=== PATIENT | female | born 1935 | race Caucasian/White ===

== ENCOUNTER → 2017-10-13 13:07 | Outpatient (POV) | payer MEDICARE, SELFPAY | DX: Z00.00 Encounter for general adult medical examination without abnormal findings (principal) ==

== ENCOUNTER → 2017-11-30 10:04 | Outpatient (CLI) | payer MEDICARE, SELFPAY ==
--- NOTE | 2017-11-30 10:06 | MM_ITS ---
MM Dig screening mamm BI w/CAD CAD Screening ORDERING PHYSICIAN : Ethan Carrasco MD PATIENT AGE: 82 years GENDER: Female COMPARISON: Previous mammograms: September 2014, November 2016 and October 2015 INDICATION: Routine screening. No hormones no new complaints. Family history sister with breast cancer TECHNIQUE: Standard CC and MLO images were obtained. R2 CAD reviewed. FINDINGS: Mild to moderate residual fibroglandular elements both breasts. No dominant mass. No suspicious calcifications. Vascular calcifications are seen in both breast similar to previous studies. No new areas of concern bilateral follow-up recommended one year. IMPRESSION: Stable bilateral mammogram with no significant new findings. Bilateral follow-up in one year recommended. BI-RADS Category: 1 Negative RECOMMENDED FOLLOW-UP: 1YR - 1 YEAR FOLLOW-UP (A letter has been sent to the patient regarding results of the study.)
== END ==
PROVIDERS: PCP Family Medicine; Visit Provider Nurse Practitioner Obstetrics & Gynecology
DX: Z12.31 Encounter for screening mammogram for malignant neoplasm of breast (principal)
CPT/HCPCS: 77067

== ENCOUNTER → 2018-02-01 14:42 | Outpatient (CLI) | payer MEDICARE, SELFPAY ==
--- NOTE | 2018-02-01 14:51 | CT_ITS ---
CT abdomen pelvis wo con CLINICAL INDICATION: Pain for urination, history of kidney stones ITS.REASON: UROLITHIASIS ORDERING PHYSICIAN: Adan Ramírez MD PATIENT AGE: 82 years COMPARISON: 10/16/2014 TECHNIQUE: Axial images obtained with sagittal and coronal reformats. All CT scans at the facility use one or more dose reduction, viz: automated exposure control, ma/kV adjustment per patient size (including targeted exams where dose is matched to indication, i.e. head), or iterative reconstruction technique. PROCEDURE: Oral Contrast: None IV Contrast: None . FINDINGS: Mild atelectatic or fibrotic changes in lung bases. There are several isodensity's of the liver measuring up to 9 mm consistent with hepatic cysts. There is mild thickening of the pericardium. No calcified gallstones. Spleen, adrenal glands, and pancreas have an unremarkable unenhanced appearance. There is a 5 mm calcific density in the mid aspect of the left kidney. No hydronephrosis. No ureteral calculi. History given of appendectomy. No intestinal obstruction or free air. No evidence of diverticulitis. There are some scattered diverticula noted ethmoid: There is a small amount fluid in the cul-de-sac on the right. No acute bony anomalies. Subarticular cyst involves the right acetabulum. IMPRESSION: 1. No ureteral calculi. There is a 5 mm calcific density in the left kidney that appears to represent a parenchymal calcification and not a renal stone 2. Small amount fluid in the pelvis etiology indeterminate. 3. Otherwise negative CT abdomen pelvis
== END ==
PROVIDERS: PCP Family Medicine; Visit Provider Urology
DX: N20.9 Urinary calculus, unspecified (principal)
CPT/HCPCS: 74176

== ENCOUNTER → 2018-05-18 13:06 | Outpatient (POV) | payer MEDICARE, SELFPAY | DX: Z00.00 Encounter for general adult medical examination without abnormal findings (principal) ==

== ENCOUNTER → 2018-09-14 13:24 | Outpatient (POV) | payer MEDICARE, SELFPAY | DX: Z00.00 Encounter for general adult medical examination without abnormal findings (principal) ==

== ENCOUNTER → 2018-12-27 16:01 | Outpatient (CLI) | payer MEDICARE, SELFPAY ==
--- NOTE | 2018-12-27 16:04 | MM_ITS ---
MM Dig screening mamm BI w/CAD ORDERING PHYSICIAN : Ethan Carrasco MD PATIENT AGE: 83 years GENDER: Female COMPARISON: November 20172016, October 2015, September 2014. INDICATION: ITS..: Routine Screening Mammogram . No hormones. No new complaints. It Family history. Sister with breast cancer. TECHNIQUE: Standard CC and MLO images were obtained. R2 CAD reviewed. FINDINGS: Moderate residual fibroglandular elements given this age patient. Overall architecture distribution similar to previous studies. No new suspicious features. No new findings of significant concern. No dominant mass nor architectural distortion nor suspicious calcifications. Minimal vascular calcifications bilaterally RIGHT BREAST:Stable right mammogram LEFT BREAST: Areas of minor asymmetry is similar to studies dating back to at least 2017. ............ IMPRESSION: ...... Stable bilateral mammogram. No significant new findings. Bilateral follow-up in one year. . BI-RADS Category: 1 Negative RECOMMENDED FOLLOW-UP: 1YR 1 YEAR FOLLOW-UP (A letter has been sent to the patient regarding results of the study.)
== END ==
PROVIDERS: PCP Family Medicine; Visit Provider Nurse Practitioner Obstetrics & Gynecology
DX: Z12.31 Encounter for screening mammogram for malignant neoplasm of breast (principal)
CPT/HCPCS: 77067

== ENCOUNTER → 2019-05-31 12:45 | Outpatient (POV) | payer MEDICARE, SELFPAY | DX: Z00.00 Encounter for general adult medical examination without abnormal findings (principal) ==

== ENCOUNTER → 2020-10-09 13:36 | Outpatient (POV) | payer MEDICARE, SELFPAY | DX: Z00.00 Encounter for general adult medical examination without abnormal findings (principal) ==

== ENCOUNTER → 2021-03-11 08:33 | Outpatient (CLI) | payer MEDICARE, SELFPAY ==
--- NOTE | 2021-03-11 08:38 | XR_ITS ---
PROCEDURE: XR DEXA AXIAL SKELETON CLINICAL HISTORY: AGE RELATED OSTEOPOROSIS COMPARISON: CR,DX BONE3 BONE DENSITOMETRY(HIP:LT SPINE from 05/17/2017 FINDINGS: The right hip BMD is 0.531 with a T-score of -2.9. The left hip BMD is 0.487 with a T-score of -3.7. The lumbar spine BMD is 0.754 with a T-score of -2.7 previously the lowest bone density was in the right femur with a T-score of -3.1. IMPRESSION: This patient is considered osteoporotic according to the World Health Organization criteria. Fracture risk is high. Treatment is advised. Based on these results a follow-up exam is recommended in 1 year. Dictated by: Tyrese Dominguez MD 03/11/2021 09:23 Tyrese Dominguez MD in [place] 03/11/2021 09:23
== END ==
PROVIDERS: PCP Family Medicine; Visit Provider Internal Medicine Nephrology
DX: M81.0 Age-related osteoporosis without current pathological fracture (principal)
CPT/HCPCS: 77080

== ENCOUNTER → 2021-03-17 20:56 | Outpatient (CLI) | payer MEDICARE, SELFPAY | PROVIDERS: Visit Provider Nurse Practitioner Family | DX: Z20.822 Contact with and (suspected) exposure to COVID-19 (principal) | CPT/HCPCS: C9803; U0003; U0005 ==

== ENCOUNTER 2021-05-01 17:38 | Emergency (ER) | payer MEDICARE, SELFPAY ==
[2021-05-01 17:48] VITALS: BP 143/86; PULSE 80; RESP 16; TEMP 36.8; O2SAT 98; BMI 20.1
[2021-05-01 19:16] VITALS: BP 153/71; PULSE 98; RESP 18; TEMP 36.5; O2SAT 96; BMI 18.8
[2021-05-01 19:34] LABS: Apearance,Urine Clear (Clear); Color,Urine Straw (Yellow)
[2021-05-01 19:35] LABS: Bilirubin,Urine Negative (Negative); Blood, Urine Trace (Negative); Glucose,Urine (UA) Negative (Negative); Ketones,Urine Negative (Negative); PH,Urine 5.5 (5.0-8.5); Protein,Urine Negative (Negative); Specific Gravity, Urine < 1.005 (1.005-1.030); UTC Leukocyte Esterase,Urine Negative (Negative); UTC Nitrate,Urine Negative (Negative); Urobilinogen,Urine 0.2 EU/dl (0.2)
[2021-05-01 19:48] VITALS: BP 153/71; PULSE 98; RESP 18; TEMP 36.5
--- NOTE | 2021-05-01 20:03 | HMH.EDUTC ---
[facility] [place] Disposition Clinical Impression: Urinary hesitancy Disposition: Home, Self-Care Condition on Discharge: Good Instructions: DI for Dysuria -- Adult Additional Instructions: Drink plenty of fluids. Take tylenol or ibuprofen for pain or fever. Take the medications as directed. Follow up with your regular doctor. GO TO THE ER FOR ANY WORSENING SYMPTOMS Follow up with your primary care physician for a recheck in 24 to 48 hours. Referrals: Thom Crowe MD [Primary Care Provider] - Time of Disposition: 20:07 Medical Decision Making - Medical Records Medical records reviewed: Yes: I reviewed the patient's medical records. - Kirk Inquiry Pt receiving controlled substance: No Vital Signs: 05/01/21 17:48 05/01/21 19:16 05/01/21 19:48 Temperature 98.2 F 97.7 F 97.7 F Temperature Source Oral Oral Pulse Rate 98 H Pulse Rate [Right] 80 98 H Respiratory Rate 16 18 18 Blood Pressure 153/71 H Blood Pressure [Right Arm] 143/86 H 153/71 H Blood Pressure Mean [Right Arm] 105 98 Blood Pressure Source [Right Arm] Automatic Cuff Blood Pressure Position [Right Arm] Sitting 02 Sat by Pulse Oximetry 98 96 Oxygen Delivery Method Room Air - Lab Data Lab results reviewed: Yes: I reviewed the patient's lab results. Lab Results 05/01/21 19:19: Urine Color Straw, Urine Appearance Clear, Urine pH 5.5, Ur Specific [place] < 1.005 L, Urine Protein Negative, Urine Glucose (UA) Negative, Urine Ketones Negative, Urine Blood Trace, Urine Nitrate Negative, Urine Bilirubin Negative, Urine Urobilinogen 0.2, Ur Leukocyte Esterase Negative Orders (Tests/Meds): ORDERS Category Date Time Status Urine Culture Stat Micro 05/01/21 19:29 Received [facility] [place] HPI - General Stated complaint: trouble urinating Time Seen by Provider: 05/01/21 20:03 Mode of Arrival: Ambulatory Source of Information: Patient Limitations: No Limitations Description of Symptoms (Recalled from Triage Doc. by RN): PT STATES SHE WOKE UP THIS MORNING AND WAS HAVING URINARY HESISTENCY, VAGINAL PRESSURE AND LOWER BACK PAIN. HOWEVER, PT STATES SINCE BEING HERE SHE WAS ABLE TO HAVE A GOOD, NORMAL VOID. HEENT Symptoms (Recalled from RN notes): No Resp Symptoms (Recalled from RN notes): No Skin Symptoms (Recalled from RN notes): No MS Symptoms (Recalled from RN notes): Yes (LOWER BACK PAIN) Functional Status (Recalled from RN notes): NA - History of Present Illness Provider Complaint: She has been having trouble getting herself to start urinating today. She states that she will feel like she needs to pee, but when she goes it takes a few minutes to get started. She denies burning or other complaints. She denies any fever or chills. - Related Data Home Medications Medication Instructions Recorded Confirmed aspirin 81 mg tablet,delayed 81 mg PO .every other day tab 12/08/17 03/17/21 release bimatoprost 0.01 % eye drops 1 drp OPHTHALMIC QPM 12/08/17 03/17/21 calcium carbonate 600 mg(1,500 1 tab PO BID 12/08/17 03/17/21 mg)-vitamin D3 800 unit chewable tablet ferrous sulfate 325 mg (65 mg 325 mg PO DAILY tab 12/08/17 03/17/21 iron) tablet pravastatin 40 mg tablet 40 mg PO DAILY 30 Days #30 tab 12/08/17 03/17/21 dmefeehn-eiq-uihpb acid 0.4 1 tab PO DAILY 02/01/18 03/17/21 mg-lycopene 300 mcg-lutein 250 mcg tablet pantoprazole 20 mg tablet,delayed 20 mg PO DAILY 03/17/21 03/17/21 release timolol maleate 0.25 % eye drops 1 drp OPHTHALMIC DAILY 03/17/21 03/17/21 Allergies Allergy/AdvReac Type Severity Reaction Status Date / Time No Known Allergies Allergy Verified 03/17/21 15:03 - Worker's Comp Is this a Worker's Comp case?: No [facility] History - Hepatitis A Screen Drug use history?: No High risk sexual behaviors?: No History of sexually transmitted infection?: No 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?: No Do you have indoor plumbing?: Yes Do you have electricity?: Yes Attestation st
== END 2021-05-01 20:29 | disposition home or self-care (01) ==
PROVIDERS: Emergency Provider Nurse Practitioner Family; PCP Family Medicine
DX: R39.11 Hesitancy of micturition (principal); M54.50 Low back pain, unspecified; K21.9 Gastro-esophageal reflux disease without esophagitis; E78.5 Hyperlipidemia, unspecified; Z79.899 Other long term (current) drug therapy
CPT/HCPCS: G0463; 81003; 87086; 99202

== ENCOUNTER 2021-06-12 13:26 | Emergency (ER) | payer MEDICARE, SELFPAY ==
[2021-06-12 14:16] VITALS: BP 136/83; PULSE 87; RESP 18; TEMP 36.6; O2SAT 97; BMI 20.6
[2021-06-12 14:26] LABS: Apearance,Urine Clear (Clear); Color,Urine Straw (Yellow)
[2021-06-12 14:58] LABS: PH,Urine 5.5 (5.0-8.5); Specific Gravity, Urine < 1.005 (1.005-1.030)
[2021-06-12 14:59] LABS: Bilirubin,Urine Negative (Negative); Blood, Urine 1+ (Negative); Glucose,Urine (UA) Negative (Negative); Ketones,Urine Negative (Negative); Protein,Urine Negative (Negative); UTC Leukocyte Esterase,Urine Negative (Negative); UTC Nitrate,Urine Negative (Negative); Urobilinogen,Urine 0.2 EU/dl (0.2)
--- NOTE | 2021-06-12 15:17 | HMH.EDUTC ---
[facility] [place] Disposition Clinical Impression: Urinary hesitancy Disposition: Home, Self-Care Condition on Discharge: Good Instructions: DI for Urinary Retention in Women, Urinary Tract Infection Additional Instructions: Drink plenty of fluids. Take tylenol for pain or fever. Follow up with your regular doctor. Please follow up over these reoccurent symptoms. A nonemergent ultrasound of your bladder would be a good test for your doctor to consider. We generally are not allowed to order ultrasounds in the [place] because they require prior approval by your insurance. GO TO THE ER FOR ANY WORSENING SYMPTOMS Referrals: Thom Crowe MD [Primary Care Provider] - Time of Disposition: 15:37 Medical Decision Making - Medical Records Medical records reviewed: No: I reviewed the patient's medical records. - Kirk Inquiry Pt receiving controlled substance: No Vital Signs: 06/12/21 14:16 Temperature 97.9 F Temperature Source Temporal Artery Scan Pulse Rate [Left] 87 Respiratory Rate 18 Blood Pressure [Right Arm] 136/83 Blood Pressure Mean [Right Arm] 100 02 Sat by Pulse Oximetry 97 - Lab Data Lab results reviewed: Yes: I reviewed the patient's lab results. Lab Results 06/12/21 14:20: Urine Color Straw, Urine Appearance Clear, Urine pH 5.5, Ur Specific [place] < 1.005 L, Urine Protein Negative, Urine Glucose (UA) Negative, Urine Ketones Negative, Urine Blood 1+, Urine Nitrate Negative, Urine Bilirubin Negative, Urine Urobilinogen 0.2, Ur Leukocyte Esterase Negative Orders (Tests/Meds): ORDERS Category Date Time Status Urine Culture Stat Micro 06/12/21 14:19 Received [facility] [place] HPI - General Stated complaint: trouble urinating Time Seen by Provider: 06/12/21 15:17 Mode of Arrival: Ambulatory Source of Information: Patient Limitations: No Limitations Description of Symptoms (Recalled from Triage Doc. by RN): pt c/o flank pain, groin pain, and pain with urination. HEENT Symptoms (Recalled from RN notes): No Resp Symptoms (Recalled from RN notes): No Skin Symptoms (Recalled from RN notes): No MS Symptoms (Recalled from RN notes): No Functional Status (Recalled from RN notes): wnl - History of Present Illness Provider Complaint: She states that for the past 1 day, it has seemed like she has trouble getting started urinating. Then, when she does start, her stream will start intermittently. She denies any burning or hurting, other than some mild tenderness of her lower abdomen on the right and left. She denies back pain. Before her symptoms started this time, and before her symptoms started the last time she had this, she was deep cleaning her house and pulling her bed out to clean beneath it. She thinks that she may have strained a muscle, but she wanted to make sure she did not have a UTI. - Related Data Home Medications Medication Instructions Recorded Confirmed aspirin 81 mg tablet,delayed 81 mg PO .every other day tab 12/08/17 03/17/21 release bimatoprost 0.01 % eye drops 1 drp OPHTHALMIC QPM 12/08/17 03/17/21 calcium carbonate 600 mg-vitamin 1 tab PO BID 12/08/17 03/17/21 D3 20 mcg (800 unit) chewable tablet ferrous sulfate 325 mg (65 mg 325 mg PO DAILY tab 12/08/17 03/17/21 iron) tablet pravastatin 40 mg tablet 40 mg PO DAILY 30 Days #30 tab 12/08/17 03/17/21 tfxqqerm-xij-lulrq acid 0.4 1 tab PO DAILY 02/01/18 03/17/21 mg-lycopene 300 mcg-lutein 250 mcg tablet pantoprazole 20 mg tablet,delayed 20 mg PO DAILY 03/17/21 03/17/21 release timolol maleate 0.25 % eye drops 1 drp OPHTHALMIC DAILY 03/17/21 03/17/21 Allergies Allergy/AdvReac Type Severity Reaction Status Date / Time No Known Allergies Allergy Verified 03/17/21 15:03 - Worker's Comp Is this a Worker's Comp case?: No [facility] History - Hepatitis A Screen Drug use history?: No High risk sexual behaviors?: No History of sexually transmitted infection?: No 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
[2021-06-12 15:37] VITALS: BP 136/83; PULSE 87; RESP 18; TEMP 36.6
== END 2021-06-12 15:50 | disposition home or self-care (01) ==
PROVIDERS: Emergency Provider Nurse Practitioner Family; PCP Family Medicine
DX: R31.9 Hematuria, unspecified (principal); R39.11 Hesitancy of micturition; K21.9 Gastro-esophageal reflux disease without esophagitis; E78.5 Hyperlipidemia, unspecified
CPT/HCPCS: G0463; 81003; 87086; 99202

== ENCOUNTER → 2021-06-25 08:37 | Outpatient (CLI) | payer MEDICARE, SELFPAY ==
--- NOTE | 2021-06-25 08:43 | US_ITS ---
FINAL REPORT CLINICAL HISTORY: PELVIC PAIN INTERMITTENT ABD PAIN FINDINGS: ABDOMINAL ULTRASOUND COMPLETE: TECHNIQUE: Ultrasound images of the abdomen were obtained. FINDINGS: The liver is fatty infiltrated. The gallbladder contains a minimal amount of sludge. The common duct is normal. The right kidney measures 8.6 cm in length and is normal in echogenicity . There is mild right hydronephrosis. The left kidney measures 8.1 cm in length and is normal in echogenicity without hydronephrosis. The spleen is unremarkable. The aorta is normal in caliber. The vena cava is unremarkable. IMPRESSION: Fatty infiltration of the liver. Mild atrophy of the bilateral kidneys with mild right hydronephrosis. Minimal sludge in the gallbladder. Reviewed, Interpreted and Dictated by Redd Flowers MD Transcribed by Rafael Acosta Authenticated by Redd Flowers MD on 06/25/2021 12:17:30 PM [facility]
--- NOTE | 2021-06-25 08:44 | US_ITS ---
FINAL REPORT TECHNIQUE: Transvaginal images of the pelvis were obtained. CLINICAL HISTORY: PELVIC PAIN-- INTERMITTENT-- POST MENOPAUSAL FINDINGS: The uterus is retroverted and measures 5.3 x 4.6 x 2.6 cm. The endometrium is unremarkable. The ovaries are not visualized. There is no significant free fluid. IMPRESSION: Retroverted uterus. Nonvisualization of the bilateral ovaries. Reviewed, Interpreted and Dictated by Redd Flowers MD Transcribed by Rafael Acosta Authenticated by Redd Flowers MD on 06/25/2021 12:17:29 PM [facility]
== END ==
PROVIDERS: PCP Family Medicine; Visit Provider Family Medicine
DX: R10.2 Pelvic and perineal pain (principal)
CPT/HCPCS: 76700; 76856

== ENCOUNTER 2022-01-10 20:09 | Emergency (ER) | payer MEDICARE, SELFPAY ==
[2022-01-10 20:11] VITALS: BP 134/61; PULSE 93; RESP 17; TEMP 36.8; O2SAT 98; BMI 19.7
[2022-01-10 20:22] VITALS: PULSE 92; O2SAT 98
--- NOTE | 2022-01-10 20:35 | HMH.EDUROGF ---
ED Disposition Clinical Impression: Bladder disorder, unspecified, Renal insufficiency Disposition: Home, Self-Care Condition on Discharge: Good Instructions: DI for Overactive Bladder Additional Instructions: see pcp for follow up Referrals: Thom Crowe MD [Primary Care Provider] - - Critical Care Critical Care Time: No Attestation: On 01/10/22, the high probability of a clinically significant, sudden or life threatening deterioration of the following system(s) required my full and direct attention, intervention and personal management. The time I documented below is in addition to time spent performing reported procedures but includes the following listed in this critical care notation. Medical Decision Making - Medical Records Medical records reviewed: Yes: I reviewed the patient's medical records. - Kirk Inquiry Pt receiving controlled substance: No Vital Signs: 01/10/22 20:11 01/10/22 20:22 Temperature 98.3 F Temperature Source Oral Pulse Rate 92 H Pulse Rate [Right] 93 H Respiratory Rate 17 Blood Pressure [Right Arm] 134/61 Blood Pressure Mean [Right Arm] 85 Blood Pressure Source [Right Arm] Automatic Cuff 02 Sat by Pulse Oximetry 98 98 Oxygen Delivery Method Room Air - Lab Data Lab results reviewed: Yes: I reviewed the patient's lab results. Lab Results 01/10/22 20:15: Urine Color Yellow, Urine Appearance Clear, Urine pH 5.5, Ur Specific [place] <= 1.005, Urine Protein Negative, Urine Glucose (UA) Negative, Urine Ketones Negative, Urine Blood Trace-i, Urine Nitrate Negative, Urine Bilirubin Negative, Urine Urobilinogen 0.2, Ur Leukocyte Esterase Trace, Urine RBC Occasional, Urine WBC Occasional, Ur Squamous Epith Cells Occasional, Urine Bacteria Trace 01/10/22 20:15: WBC 5.8, RBC 3.92 L, Hgb 12.3, Hct 35.8 L, MCV 91.3, MCH 31.2, MCHC 34.2, RDW 11.8, Plt Count 295, MPV 7.6, Neut % (Auto) 58.9, Lymph % (Auto) 28.9, [place] % (Auto) 9.1, Eos % (Auto) 2.2, Baso % (Auto) 0.8, Neut # (Auto) 3.4, Lymph # (Auto) 1.7, [place] # (Auto) 0.5, Eos # (Auto) 0.1, Baso # (Auto) 0.1, ESR 24 01/10/22 20:15: Sodium 137, Potassium 5.1, Chloride 100, Carbon Dioxide 32 H, Anion Gap 10.1, BUN 24 H, Creatinine 1.20 H, Estimated Creat Clear 30, Estimated GFR 43 L, Est GFR ( Amer) 52 L, Glucose 144 H, Calcium 10.0, Total Bilirubin < 0.1 L, AST 38 H, ALT 15, Alkaline Phosphatase 76, C-Reactive Protein 1.2, Total Protein 7.1, Albumin 4.1, Globulin 3.0, Albumin/Globulin Ratio 1.4, Procalcitonin 0.065, TSH 3.72, Thyroxine (T4) 11.0 01/10/22 20:15: Lactate 1.4 01/10/22 20:40: SARS-CoV-2 (PCR) Not detected, Influenza A Untype (PCR) Not detected, Influenza Type B (PCR) Not detected Result diagrams: 01/10/22 20:15 01/10/22 20:15 Orders (Tests/Meds): ED MEDICATIONS Generic Name Dose Route Start Last Admin Trade Name Freq PRN Reason Stop Dose Admin Sodium Chloride 1,000 mls @ 999 mls/hr 01/10/22 20:45 01/10/22 20:38 Sod Chlor 0.9% 1000ml Bag IV 01/10/22 21:45 999 mls/hr .Q1H1M SAMPSON Administration - CT Data CT Scan: Abdomen, Pelvis Time Received: 22:[address] Reviewed: Yes: I have viewed the radiologist's interpretation Preliminary Findings: Normal/NAD Medical Decision Narrative: has bladder spasm sx with stable exam and will see pcp for follow up Female Urogenital HPI - General Chief complaint: Abdominal Pain Stated complaint: weak, lower abd pain Time Seen by Provider: 01/10/22 20:30 Mode of Arrival: Family Vehicle Source of Information: Patient, Relative, Medical Record Limitations: No Limitations Description of Symptoms (Recalled from ER Triage Doc. by RN): Pt c/o low ABD pain that causes her urinary urgency. States after she goes to the bathroom the pain persists for a few moments but then she feels better and the pain goes away . Denies any fever, chills, or n/v/d. States she has felt hot several times the last few days, but took her temp and no fever. She is A&Ox but does note some
[2022-01-10 20:42] LABS: Microscopic, Urine URINE MICROSCOPIC (MICROSCOPIC)
[2022-01-10 20:44] LABS: Appearance,Urine CLEAR (Clear); Bilirubin,Urine Negative (Negative); Blood, Urine TRACE-I (Negative); Color,Urine YELLOW (Yellow); Glucose,Urine (UA) Negative (Negative); Ketones,Urine Negative (Negative); Leukocyte Esterase,Urine TRACE (Negative); Nitrate,Urine Negative (Negative); PH,Urine 5.5 (5.0-8.5); Protein,Urine Negative (Negative); Specific Gravity, Urine <= 1.005 (1.005-1.030); Urobilinogen,Urine 0.2 EU/dl (0.2)
[2022-01-10 20:45] LABS: Basophils # 0.1 K/mm3 (0-0.2); Basophils % 0.8 % (0.1-2.0); Eosinophils # 0.1 K/mm3 (0.0-0.4); Eosinophils % 2.2 % (0.1-12.0); Hematocrit 35.8 % (37.0-47.0); Hemoglobin 12.3 g/dL (12.2-16.2); Lymphocytes # 1.7 K/mm3 (0.7-4.5); Lymphocytes % 28.9 % (10-50); Mean Corpuscular HGB Conc 34.2 g/dL (31.8-35.4); Mean Corpuscular Hemoglobin 31.2 pg (27.0-31.2); Mean Corpuscular Volume 91.3 fl (81-99); Mean Platelet Volume 7.6 fl (7.4-10.4); Monocytes # 0.5 K/mm3 (0.1-1.0); Monocytes % 9.1 % (1.7-9.3); Neutrophils # 3.4 K/mm3 (1.8-7.8); Neutrophils % 58.9 % (37.0-80.0); Platelet Count 295 K/mm3 (142-424); Red Blood Count 3.92 M/mm3 (4.20-5.40); Red Cell Distribution Width 11.8 % (11.5-17.5); White Blood Count 5.8 K/mm3 (4.8-10.8)
[2022-01-10 20:49] LABS: Coronavirus 19, PCR Not Detected (NotDetected); Influenza A, PCR Not Detected (NotDetected); Influenza B, PCR Not Detected (NotDetected)
[2022-01-10 20:49] LABS: Alanine Aminotransferase 15 U/L (12-78); Albumin Level 4.1 g/dl (3.5-5.0); Albumin/Globulin Ratio 1.4 (1.1-1.8); Alkaline Phosphatase 76 U/L (38-126); Anion Gap 10.1 mEq/L (5-15); Aspartate Amino Transferase 38 U/L (14-36); Bilirubin,Total < 0.1 mg/dl (0.2-1.3); Blood Urea Nitrogen 24 mg/dl (7-17); Carbon Dioxide 32 mmol/L (22.0-30.0); Chloride 100 mmol/L (98-107); Creatinine Clearance Estimated 30 mL/min (50-200); Estimated Glomerular Filt Rate 43 ml/min (>60); GFR (African American) 52 ML/MIN (>60); Glucose 144 mg/dl (74-100); Potassium 5.1 mmoL/L (3.5-5.1); Sodium 137 mmol/L (136-145); Total Protein,Serum 7.1 g/dl (6.3-8.2)
[2022-01-10 20:50] LABS: Lactic Acid 1.4 mmol/L (0.7-2.1)
[2022-01-10 20:54] LABS: C-Reactive Protein 1.2 mg/L (0-4)
[2022-01-10 21:08] LABS: Procalcitonin 0.065 ng/mL (0.0-2.0)
[2022-01-10 21:10] LABS: Erythrocyte Sedimentation Rate 24 mm/hr (0-30)
[2022-01-10 21:12] LABS: Bacteria,Urine Trace /lpf; RBC,Urine Occasional #/hpf (0-3); Squamous Epithelial Cell,Urine Occasional #/hpf (0-5); WBC,Urine Occasional #/hpf (0-3)
--- NOTE | 2022-01-10 21:14 | CT_ITS ---
PROCEDURE INFORMATION: Exam: CT Abdomen And Pelvis Without Contrast Exam date and time: 01/10/2022 9:16 PM Age: 86 years old Clinical indication: Other: Painful urination; Additional info: Pain with urination TECHNIQUE: Imaging protocol: Computed tomography of the abdomen and pelvis without contrast. Radiation optimization: All CT scans at this facility use at least one of these dose optimization techniques: automated exposure control; mA and/or kV adjustment per patient size (includes targeted exams where dose is matched to clinical indication); or iterative reconstruction. COMPARISON: [facility] CT abdomen pelvis wo con 02/01/2018 2:56 PM FINDINGS: Liver: Background liver parenchyma is hyperdense which may reflect hemochromatosis or medication effect. Tiny hypoattenuating foci in the liver are too small to fully characterize but likely cysts or bile duct hamartomas, stable from prior in 2018. Gallbladder and bile ducts: Postprandial gallbladder is contracted. Pancreas: Normal. No ductal dilation. Spleen: Normal. No splenomegaly. Adrenal glands: Normal. No mass. Kidneys and ureters: Kidneys are symmetric without evidence of obstruction on either side. Parenchymal calcification noted on the left. No intrarenal stones. Stomach and bowel: Postprandial stomach. Normal caliber small bowel. Normal colon. Appendix: No evidence of appendicitis. Intraperitoneal space: Unremarkable. No free air. No significant fluid collection. Vasculature: Mildly calcified abdominal aorta without aneurysm. Lymph nodes: Unremarkable. No enlarged lymph nodes. Urinary bladder: Decompressed urinary bladder. Reproductive: Atrophic uterus as expected. Bones/joints: Unremarkable. No acute fracture. Soft tissues: Unremarkable. IMPRESSION: No evidence of urolithiasis or renal inflammation. Normal appearance of the decompressed urinary bladder. No acute abnormality to explain patient's dysuria.
[2022-01-10 21:22] LABS: Thyroid Stimulating Hormone 3.72 uIU/mL (0.465-4.68)
[2022-01-10 23:36] VITALS: BP 130/62; PULSE 89; RESP 18; TEMP 36.8; O2SAT 99
== END 2022-01-10 23:38 | disposition home or self-care (01) ==
PROVIDERS: Emergency Provider Emergency Medicine; PCP Family Medicine
DX: N28.9 Disorder of kidney and ureter, unspecified (principal); N32.89 Other specified disorders of bladder; R53.1 Weakness; R10.30 Lower abdominal pain, unspecified; R39.15 Urgency of urination; K21.9 Gastro-esophageal reflux disease without esophagitis; E78.5 Hyperlipidemia, unspecified
CPT/HCPCS: 74176; 80053; 81001; 83605; 84145; 84436; 84443; 85025; 85651; 86140; 87086; 96360; 99284; C9803; U0003; U0005

== ENCOUNTER 2022-02-20 11:01 | Emergency (ER) | payer MEDICARE, SELFPAY ==
[2022-02-20 11:25] VITALS: BP 126/77; PULSE 73; RESP 19; TEMP 36.6; O2SAT 100; BMI 20.1
--- NOTE | 2022-02-20 11:53 | EXP.UTC ---
Discharge Plan Disposition Patient Disposition: Home, Self-Care Condition: Good Prescriptions Prescriptions: No Action pravastatin 40 mg tablet 40 mg PO DAILY 30 Days Qty: 30 Label Comments: take 1 tablet by mouth once daily bimatoprost [Lumigan] 0.01 % drops 1 drp OPHTHALMIC QPM ferrous sulfate 325 mg (65 mg iron) tablet 325 mg PO DAILY calcium carbonate-vitamin D3 [Caltrate 600 plus D] 600 mg (1,500 mg)-800 unit tablet,chewable 1 tab PO BID aspirin 81 mg tablet,delayed release (DR/EC) 81 mg PO .every other day timolol maleate [Timoptic] 0.25 % drops 1 drp OPHTHALMIC DAILY pantoprazole 20 mg tablet,delayed release (DR/EC) 20 mg PO DAILY qhohhnov-jez-EX-lycopen-lutein [Centrum Silver] 0.4-300-250 mg-mcg-mcg tablet 1 tab PO DAILY Referrals Follow up/Referrals: Thom Crowe MD [Primary Care Provider] - See instructions Activity Restrictions/Add. Instructions Additional Instructions/Restrictions: *Monitor Temp, Over the counter Motrin or Tylenol as directed/as needed Tylenol every 4 hours and Motrin every 6 hours (as long as your family doctor has told you that you can take it) for fever or pain. and straight to ER if unable to lower temp less than 101.0 after medication given *Warm salt water gargles may help to soothe the throat *Throat Lozenges? *Warm fluids like tea with honey may help to soothe the throat? *Sleep elevated *Humidifier/Vaporizer Follow up IMMEDIATELY for new or worsening symptoms or no Noticeable improvement over the next 48-72 hours. 911 for difficulty breathing or swallowing You were tested for today for COVID19 your test result should be back in the next 24-48 hours, you may checked your results on the [facility] My Health Portal Make sure to take your Vitamins Vit. C Vit D and Zinc if you can take them Clinical Impressions Clinical Impression: COVID-19, Viral upper respiratory tract infection Instructions Patient Instructions: DI for Viral Upper Respiratory Infection -- Adult, Coronavirus Disease 2019 Discharge ED Provider: Nani Gomez [facility] [place] HPI General Stated complaint: covid test, runny nose, cough Mode of Arrival: Ambulatory Source of Information: Patient Limitations: No Limitations Time Seen by Provider: 02/20/22 11:40 Description of Symptoms (Recalled from Triage Doc. by RN): PATIENT C/O DRY COUGH, WATERY EYES, AND SNEEZING X 2 DAYS. REQUESTING COVID TEST HEENT Symptoms (Recalled from RN notes): Yes Resp Symptoms (Recalled from RN notes): Yes Skin Symptoms (Recalled from RN notes): No MS Symptoms (Recalled from RN notes): No Functional Status (Recalled from RN notes): WNL History of Present Illness Provider Complaint: Patient states that she has been having dry cough, sneezing watery eyes States that she isnt sure if she may have been around someone with COVID but wanted to get tested to make sure Related Data Home Medications Medication Instructions Recorded Confirmed aspirin 81 mg tablet,delayed 81 mg PO .every other day CAD 12/08/17 01/10/22 release bimatoprost 0.01 % eye drops 1 drp OPHTHALMIC QPM eye 12/08/17 01/10/22 (Lumigan) calcium carbonate 600 mg-vitamin 1 tab PO BID Supplement 12/08/17 01/10/22 D3 20 mcg (800 unit) chewable tablet (Caltrate 600 plus D) ferrous sulfate 325 mg (65 mg 325 mg PO DAILY Supplement 12/08/17 01/10/22 iron) tablet pravastatin 40 mg tablet 40 mg PO DAILY hld 30 days #30 tabs 12/08/17 01/10/22 ymiyxvik-uzc-hqymb acid 0.4 1 tab PO DAILY Supplement 02/01/18 01/10/22 mg-lycopene 300 mcg-lutein 250 mcg tablet (Centrum Silver) pantoprazole 20 mg tablet,delayed 20 mg PO DAILY GERD 03/17/21 01/10/22 release timolol maleate 0.25 % eye drops 1 drp OPHTHALMIC DAILY eye 03/17/21 01/10/22 (Timoptic) Allergies Allergy/AdvReac Type Severity Reaction Status Date / Time No Known Allergies Allergy Verified 03/17/21 15:03 Worker's Comp Is thi
[2022-02-20 12:03] VITALS: BP 126/77; PULSE 73; RESP 19; TEMP 36.6; O2SAT 100
== END 2022-02-20 12:10 | disposition home or self-care (01) ==
PROVIDERS: Emergency Provider Nurse Practitioner; PCP Family Medicine
DX: J06.9 Acute upper respiratory infection, unspecified (principal); R09.89 Other specified symptoms and signs involving the circulatory and respiratory systems; Z20.822 Contact with and (suspected) exposure to COVID-19; Z79.82 Long term (current) use of aspirin; Z79.899 Other long term (current) drug therapy
CPT/HCPCS: 99213; C9803; G0463; U0003; U0005

== ENCOUNTER 2024-04-17 11:35 | Outpatient (CLI) | payer MEDICARE, SELFPAY ==
--- OUTSIDE RECORDS SUMMARY | 2024-04-17 11:39 | XMS_ITS ---
Author Organization [facility] ALLERGIES AND ADVERSE REACTIONS No information ASSESSMENT No information CHIEF COMPLAINT No information Vital Signs Bpsitting Date Weight Height Bmi Fieldcount Timerecorde d 140/60 2023-09-27 127,0 5,5 21.13 4 09:15 OBJECTIVE DATA No information PHYSICAL EXAMINATION No information TREATMENT PLAN No information PROBLEMS No information RESULTS No information REVIEW OF SYSTEMS No information SUBJECTIVE DATA No information MEDICATIONS No information
--- OUTSIDE RECORDS SUMMARY | 2024-04-17 11:39 | XMS_ITS ---
Author Organization Unknown Allergies, Adverse Reactions and Alerts Date Isallergic Allergen Allergycode 02/23/2024 00:00:00 1 Flagyl [id number] 250 02/02/2024 00:00:00 1 Flagyl [id number] 250 10/08/2023 00:00:00 1 Flagyl [id number] 250 10/05/2023 00:00:00 1 Flagyl [id number] 250 09/27/2023 00:00:00 1 Flagyl [id number] 250 09/27/2023 00:00:00 1 Flagyl [id number] 250 08/31/2023 00:00:00 1 Flagyl [id number] 250 07/06/2023 00:00:00 1 Flagyl [id number] 250 06/01/2023 00:00:00 1 Flagyl [id number] 250 05/04/2023 00:00:00 1 Flagyl [id number] 250 2023 00:00:00 1 Flagyl [id number] 250 03/31/2023 00:00:00 1 Flagyl [id number] 250 ASSESSMENT No information CHIEF COMPLAINT No information MEDICATIONS No information OBJECTIVE DATA No information PHYSICAL EXAMINATION No information TREATMENT PLAN No information PROBLEMS No information RESULTS No information REVIEW OF SYSTEMS No information SUBJECTIVE DATA No information VITAL SIGNS No information
--- NOTE | 2024-04-17 11:42 | XR_ITS ---
PROCEDURE INFORMATION: Exam: XR Left Hip Exam date and time: 04/17/2024 11:46 AM Age: 89 years old Clinical indication: Pelvic pain; Additional info: Left groin pain TECHNIQUE: Imaging protocol: Radiologic exam of the left hip. Views: 2 or 3 views hip with pelvis when performed. 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 There is no evidence of acute fracture.There is no evidence of malalignment or dislocation. Soft tissues: Unremarkable. IMPRESSION: There is no evidence of acute fracture.There is no evidence of malalignment or dislocation.
== END 2024-04-17 23:59 | disposition home or self-care (01) ==
LOC: RAD 11:38
PROVIDERS: PCP Family Medicine; Visit Provider Nurse Practitioner
DX: R10.32 Left lower quadrant pain (principal)
CPT/HCPCS: 73502